=== PATIENT | female | born 1960 | race American Indian/Alaskan Native ===

== ENCOUNTER 2016-12-21 02:18 | Emergency (ER) | payer MEDICARE | END 2016-12-21 02:30 | disposition left against medical advice (07) | LOC: ED 02:18 | DX: R07.9 Chest pain, unspecified (principal); M62.81 Muscle weakness (generalized); Z53.21 Procedure and treatment not carried out due to patient leaving prior to being seen by health care provider | CPT/HCPCS: 93005; 93010 ==

== ENCOUNTER 2019-02-13 06:09 | Day surgery (SDC) | payer MEDICARE ==
[2019-02-13] MEDS ORDERED: NACL 0.9% 500 ML 500 ML IV SCH (07:00)
[2019-02-13 07:12] LABS: Basophils # (Auto) 0.1 K/mm3 (0.0-0.1); Basophils % (Auto) 1.2 % (0.0-1.8); Eosinophils # (Auto) 0.1 K/mm3 (0.0-0.4); Eosinophils % (Auto) 2.1 % (0.0-4.3); Hemoglobin 11.4 gm/dl (10.1-14.3); Lymphocytes # (Auto) 1.8 K/mm3 (1.2-5.4); Mean Corpuscular HGB Conc 34 % (30-34); Mean Corpuscular Volume 106 fl (79-97); Monocytes # (Auto) 0.5 K/mm3 (0.0-0.8); Monocytes % (Auto) 11.9 % (0.0-7.3); Platelet Count 189 K/mm3 (140-440); Red Blood Count 3.22 M/mm3 (3.65-5.03); Red Cell Distribution Width 14.5 % (13.2-15.2)
[2019-02-13 07:22] LABS: INR 0.86 (0.87-1.13)
[2019-02-13 07:23] LABS: Partial Thromboplastin Time 25.6 Sec. (24.2-36.6)
[2019-02-13 07:26] LABS: BUN/Creatinine Ratio 17; Blood Urea Nitrogen 12 mg/dL (7-17); Calcium 9.9 mg/dL (8.4-10.2); Hemolysis Index 6
--- NOTE | 2019-02-13 07:46 | Anesthesia Day of Surgery ---
Anesthesia Day of Surgery - Day of Surgery Patient Examined: Yes Patient H&P Reviewed: Yes Patient is NPO: Yes
--- NOTE | 2019-02-13 07:49 | Anesthesia Consultation ---
Anesthesia Consult and Med Hx Date of service: 02/13/19 - Airway Anesthetic Teeth Evaluation: Chipped (LOOSE upper right tooth) ROM Head & Neck: Adequate Mental/Hyoid Distance: Adequate Mallampati Class: Class II Intubation Access Assessment: Good - Pre-Operative Health Status ASA Pre-Surgery Classification: ASA3 Proposed Anesthetic Plan: General, MAC - Pulmonary Hx Smoking: Yes - Cardiovascular System Hx Hypertension: Yes Hx Coronary Artery Disease: No (States negative cardiac studies) - Endocrine Hx Non-Insulin Dependent Diabetes: No - Additional Comments Anesthesia Medical History Comments: Activity limited by claudication
[2019-02-13] MEDS ORDERED: DIPRIVAN 10 MG/ML IV ONE ×4 (08:02→08:04)
[2019-02-13] MEDS ORDERED: DILAUDID ONE (08:04)
[2019-02-13] MEDS ORDERED: HEPARIN 10,000 UNITS/10 ML ONE (08:15)
[2019-02-13] MEDS ORDERED: HEPARIN/NS 5000 UNIT/500ML(CATH LAB) 1,000 ML IR ONE (08:15)
[2019-02-13] MEDS: XYLOCAINE 2% INFILTRATI ONE ×2 (08:52→08:55)
[2019-02-13] MEDS ORDERED: NACL 0.9% 500 ML 500 ML ONE (10:30)
[2019-02-13] MEDS ORDERED: HEPARIN/NS 5000 UNIT/500ML(CATH LAB) 500 ML IR ONE (10:31)
--- NOTE | 2019-02-13 10:35 | Short Stay Summary ---
Short Stay Documentation Date of service: 02/13/19 - History Principal diagnosis: Leriche syndrome H&P: obtained from office - Allergies and Medications Current Medications: Allergies No Known Allergies Allergy (Unverified 12/22/16 10:27) Home Medications Medication Instructions Recorded Confirmed Last Taken Type Aspirin [Aspirin BABY CHEW TAB] 81 mg PO DAILY 02/13/19 02/13/19 02/12/19 History 81 mg Losartan Potassium 100 mg PO DAILY 02/13/19 02/13/19 02/12/19 History 100 mg amLODIPine [Norvasc] 5 mg PO DAILY 02/13/19 02/13/19 02/12/19 History 5 mg Active Medications Sodium Chloride (Nacl 0.9% 500 Ml) 500 mls @ 50 mls/hr IV DIRECT [facility] Last Admin: 02/13/19 08:13 Dose: 50 mls/hr Documented by: - Brief post op/procedure progress note Date of procedure: 02/13/19 Pre-op diagnosis: Leriche Syndrome Post-op diagnosis: same Procedure: Placement of aortic and bilateral common iliac artery stents Anesthesia: local Surgeon: JOSE L CARDONA Estimated blood loss: minimal Pathology: none Condition: stable - Disposition Condition at discharge: Good Disposition: DC-01 TO HOME OR SELFCARE Short Stay Discharge Plan Activity: advance as tolerated Weight Bearing Status: Weight Bear as Tolerated Diet: regular Wound: keep clean and dry, per your surgeon's advice Follow up with: FELICIA DARNELL MD [Primary Care Provider] - 7 Days
--- NOTE | 2019-02-13 10:49 | Operative Report ---
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 The patient was brought to the angiographic suite and placed in supine position on the examination table. Initial ultrasound evaluation of the legs demonstrated a patent common femoral arteries bilaterally. The patient's bilateral groins were prepped and draped in the usual sterile fashion. 1% lidocaine was used for anesthesia. Under ultrasound guidance, the left common femoral artery was cannulated with a 7 cm 21-gauge needle. A 0.018 guidewire was advanced centrally. The needle was removed and a micro-sheath placed. Access to the right common femoral artery was obtained in a similar fashion a mocro-sheath was also placed on the right. On the left, a 0.035 guidewire was advanced through the sheath. The micro- sheath was exchanged for a 5 Malian sheath. A 0.035 catheter was then advanced through the narrow common iliac artery and narrowed distal aorta into the abdominal aorta. An Omni first catheter was advanced over the guidewire. Angiography was performed. This demonstrates 90% narrowing within the distal abdominal aorta, complete occlusion of the right common iliac artery and 80% stenosis in the left common iliac artery. On the right, 0.035 guidewire was advanced through the micro-sheath, the micro- sheath was exchanged for a 5 Malian sheath. Using accommodation of guidewires and catheters, ultimately, a V 18 guidewire was advanced through the occluded right common iliac artery into the abdominal aorta. The vertebral catheter was advanced to follow and angiography performed to document intraluminal positioning. Dilation of the occlusion on the right was performed first using a 3 mm x 80 mm balloon followed by 4 mm x 80 mm balloon inflated to nominal atmospheres for 2 minutes for both sizes. At this point, angiography was performed in the distal abdominal aorta through an Omni flush catheter placed on the left. The 5 Malian sheath on the right was upsized to an 8 Malian sheath, the 5 Malian sheath on the left was upsized to a 7 Malian sheath. An 11 mm x 39 mm VBX stent was advanced to the right sheath. The guidewire on the left was advanced proximally in the deployed stent. Stent was deployed only to nominal atmospheres. A 12 mm x 20 mm balloon was then advanced to the proximal aspect of the stent to flare the stent into the abdominal aorta. At this point, a 7 mm x 59 mm VBX was advanced to the right sheath, a 7 mm x 59 mm VBX was advanced to the left sheath. Following angiography for anatomical localization of the internal iliac arteries bilaterally, the stents were deployed in kissing fashion into the aortic stent. The balloons were expanded to nominal atmospheres. Completion angiography was performed which demonstrated an endoleak at the proximal end of the aortic stent. The 12 mm balloon was again advanced and insufflated to 9 ryan the flare the stent further. Postangioplasty imaging demonstrated a resolution of the endoleak with brisk flow throughout the aorta and bilateral common iliac arteries. On the left, hemostasis was achieved using an initial arterial closure device. On the right, given that diminutive size, hemostasis was achieved using manual compression. Sterile compression dressings were applied to both sides. The patient tolerated the procedure well. There were no immediate post procedure consultation. Sedation was provided by anesthesia services. Continuous cardiopulmonary monitoring was utilized. Impression: 1) Aortic and bilateral lower extremity angiography demonstrating 90% stenosis in the distal abdominal aorta, complete occlusion of the right common iliac artery with reconstitution of the right external iliac artery through paraspinal collaterals, and 80% stenosis of the left common iliac artery. 2) Placement of an 11 mm x 39 mm VBX distal abdominal aortic stent. 3) Placement of kissing 7 mm x 59 mm VBX stents in bilateral common iliac arteries with completion angiography demonstrating brisk flow in the distal abdominal aorta, bilateral common iliac arteries
[2019-02-13] MEDS ORDERED: PERCOCET 5/325 PO ONE (12:41)
[2019-02-13] MEDS ORDERED: PLAVIX PO ONE (14:20)
[2019-02-13] MEDS ORDERED: PLAVIX ONE (14:30)
[2019-02-13 16:53] VITALS: BP 104/71
[2019-02-13] MEDS ORDERED: PHENYLEPHRINE/NS Syringe 1,000 MCG/10 ML IV ONE (17:00)
[2019-02-13] MEDS ORDERED: XYLOCAINE MPF 2% ONE (17:00)
== END 2019-02-13 17:10 | disposition home or self-care (01) ==
LOC: CATHLABREC 06:09
PROVIDERS: ATTEND Radiology Diagnostic Radiology
DX: I74.09 Other arterial embolism and thrombosis of abdominal aorta (principal); I74.5 Embolism and thrombosis of iliac artery; I10 Essential (primary) hypertension; F17.210 Nicotine dependence, cigarettes, uncomplicated; Z83.3 Family history of diabetes mellitus; Z80.0 Family history of malignant neoplasm of digestive organs; Z80.8 Family history of malignant neoplasm of other organs or systems; Z79.899 Other long term (current) drug therapy; Z79.82 Long term (current) use of aspirin; Z98.49 Cataract extraction status, unspecified eye; Z98.890 Other specified postprocedural states
CPT/HCPCS: 36415; 37221; 37236; 76937; 80048; 85025; 85347; 85610; 85730; C1725; C1751; C1760; C1769; C1874; C1887; C1894; J1170; J1644; J2370; J2704; J7040; Q9967